=== PATIENT | male | born 1970 | race American Indian/Alaskan Native ===

== ENCOUNTER 2022-01-25 19:20 | Emergency (ER) | payer SELFPAY ==
[2022-01-26 02:55] VITALS: BP 138/80
--- NOTE | 2022-01-26 08:05 | Emergency Department Report ---
ED Lower Extremity HPI - General Chief Complaint: Extremity Problem,Nontraumatic Stated Complaint: INGROWN TOE NAIL Time Seen by Provider: 01/26/22 07:25 Source: patient Mode of arrival: Ambulatory Limitations: No Limitations - History of Present Illness Initial Comments: This is a 51-year-old male nontoxic, well nourished in appearance, no acute signs of distress presents to the ED with c/o of right 3rd toe pain 2 weeks. Patient denies any injuries or trauma. Patient denies any numbness, tingling, fever, chills, nausea, vomiting, chest pain, shortness of breath, headache, stiff neck. Patient denies any joint swelling or joint redness. Patient denies decreased range of motion or decreased gait. Patient denies any allergies. -: week(s) Injury: Toes: Right Severity: mild Severity scale (0 -10): 3 Improves With: nothing Worsens With: palpation Associated Symptoms: ambulatory. denies: snap/pop sensation, swelling, numbness, tingling, unable to bear weight, able to partially bear weight - Related Data Allergies Allergy/AdvReac Type Severity Reaction Status Date / Time No Known Allergies Allergy Verified 01/25/22 21:33 ED Review of Systems ROS: Stated complaint: INGROWN TOE NAIL Other details as noted in HPI Comment: All other systems reviewed and negative Constitutional: denies: chills, fever Eyes: denies: eye pain, eye discharge, vision change ENT: denies: ear pain, throat pain Respiratory: denies: cough, shortness of breath, wheezing Cardiovascular: denies: chest pain, palpitations Endocrine: no symptoms reported Gastrointestinal: denies: abdominal pain, nausea, diarrhea Genitourinary: denies: urgency, dysuria Musculoskeletal: denies: back pain, joint swelling, arthralgia Skin: denies: rash, lesions Neurological: denies: headache, weakness, paresthesias Psychiatric: denies: anxiety, depression Hematological/Lymphatic: denies: easy bleeding, easy bruising ED Physical Exam - General Limitations: No Limitations General appearance: alert, in no apparent distress - Head Head exam: Present: atraumatic, normocephalic - Eye Eye exam: Present: normal appearance - Neck Neck exam: Present: normal inspection, full ROM. Absent: lymphadenopathy - Respiratory Respiratory exam: Absent: respiratory distress - Cardiovascular Cardiovascular Exam: Present: regular rate - Extremities Exam Extremities exam: Present: normal inspection, full ROM, tenderness, normal capillary refill. Absent: joint swelling, calf tenderness - Expanded Lower Extremity Exam Right Hip exam: Present: normal inspection, full ROM. Absent: tenderness, swelling Upper Leg exam: Present: normal inspection, full ROM. Absent: tenderness, swelling Knee exam: Present: normal inspection, full ROM. Absent: tenderness, swelling Lower Leg exam: Present: normal inspection, full ROM. Absent: tenderness, swelling Ankle exam: Present: normal inspection, full ROM. Absent: tenderness, swelling, abrasion, laceration, ecchymosis, deformity, crepidus, dislocation, erythema, anterior draw sign Foot/Toe exam: Present: normal inspection, full ROM, tenderness. Absent: swelling, abrasion, laceration, ecchymosis, deformity, crepidus, dislocation, erythema, amputation, puncture wound, foreign body, calcaneal tenderness, tenderness at base of 5th metatarsal, nail avulsion, subungual hematoma Neuro vascular tendon exam: Present: no vascular compromise Gait: Positive: observed and normal 1 - pain here - Back Exam Back exam: Present: normal inspection, full ROM - Neurological Exam Neurological exam: Present: alert, oriented X3 - Psychiatric Psychiatric exam: Present: normal affect, normal mood - Skin Skin exam: Present: warm, dry, intact, normal color. Absent: rash ED Course Vital Signs 01/26/22 02:53 Temperature 97.6 F Pulse Rate 67 Respiratory 20 Rate Blood Pressure 138/80 [Right] O2 Sat by Pulse 99 Oximetry - Reevaluation(s) Reevaluation #1: 01/26/22 08:03 Patient is speaking in full sentences with no signs of distress noted. ED Lower Extremity MDM - Medical Decision Making This is a 51-year-old male that presents with right toe pain. Patient is stable and was examined by me. After my physical exam I instructed patient that a x- ray will be ordered but patient refused and stated he needs to leave because he worked all night. I instructed patient of my concerns and further evaluation and treatment but patient refused and sign AGAINST MEDICAL ADVICE. Patient educated of my concerns if not properly treated and diagnosed. Patient was instructed to follow-up with a orthopedic doctor as soon as possible days or if symptoms worsen and continue return to emergency room as soon as possible. At time of signing AGAINST MEDICAL ADVICE, the patient does not seem toxic or ill in appearance. No acute signs of distress noted. No further questions noted by the patient. Critical care attestation.: If time is entered above; I have spent that time in minutes in the direct care of this critically ill patient, excluding procedure time. ED Disposition Clinical Impression: Toe pain, right Disposition: 07 LEFT AGAINST MEDICAL ADVICE Is pt being admited?: No Condition: Undetermined Additional Instructions: Follow-up with a orthopedic doctor in as soon as possible or if symptoms worsen and continue return to emergency room as soon as possible. Referrals: YIMI RUDOLPH MD [Staff Physician] - [facility] Time of Disposition: 08:05
== END 2022-01-26 08:00 | disposition left against medical advice (07) ==
LOC: ED 19:20
DX: M79.674 Pain in right toe(s) (principal); Z79.899 Other long term (current) drug therapy
CPT/HCPCS: 99282

== ENCOUNTER 2022-03-01 01:17 | Emergency (ER) | payer SELFPAY ==
[2022-03-01 15:54] LABS: Basophils % (Auto) 0.7 % (0.0-1.8); Eosinophils # (Auto) 0.2 K/mm3 (0.0-0.4); Eosinophils % (Auto) 3.3 % (0.0-4.3); Hematocrit 44.7 % (35.5-45.6); Hemoglobin 14.4 gm/dl (11.8-15.2); Lymphocytes # (Auto) 1.4 K/mm3 (1.2-5.4); Lymphocytes % (Auto) 27.7 % (13.4-35.0); Mean Corpuscular HGB Conc 32 % (32-34); Mean Corpuscular Volume 90 fl (84-94); Monocytes # (Auto) 0.8 K/mm3 (0.0-0.8); Monocytes % (Auto) 15.2 % (0.0-7.3); Platelet Count 245 K/mm3 (140-440); Red Blood Count 4.95 M/mm3 (3.65-5.03)
[2022-03-01 16:17] LABS: Alanine Aminotransferase 17 units/L (7-56); Albumin 4.2 g/dL (3.9-5); BUN/Creatinine Ratio 19; Blood Urea Nitrogen 15 mg/dL (9-20); Calcium 9.2 mg/dL (8.4-10.2); Hemolysis Index 7
--- NOTE | 2022-03-01 16:53 | Emergency Department Report ---
ED Psych HPI - General Chief Complaint: Psych Stated Complaint: OVERDOSE Time Seen by Provider: 03/01/22 15:14 Source: patient Mode of arrival: Ambulatory - History of Present Illness Initial Comments: 51-year-old male patient with no previous diagnosis of psychiatric illness pre sents to the emergency department complaining of suicidal ideation since last night. Patient does have a history of substance abuse, and states that he attempted to overdose on 1 ounce of cocaine, last night, after finding out that his brother had . Patient states that his brother was his only family. Patient has no physical complaints, currently. Patient denies headache, chest pain, nausea, vomiting, palpitations, or shortness of breath. Patient denies previous similar episodes. Patient denies homicidal ideations or hallucinations. Denies any alleviating factors, but does state that he does not feel as sad as he did last night. - Related Data Allergies Allergy/AdvReac Type Severity Reaction Status Date / Time No Known Allergies Allergy Verified 01/25/22 21:33 ED Review of Systems ROS: Stated complaint: OVERDOSE Other details as noted in HPI Comment: All other systems reviewed and negative Constitutional: denies: no symptoms reported, chills, fever Eyes: denies: eye pain, eye discharge, vision change ENT: denies: ear pain, throat pain Respiratory: no symptoms reported. denies: cough, shortness of breath, wheezing Cardiovascular: denies: chest pain, palpitations Endocrine: no symptoms reported Gastrointestinal: denies: abdominal pain, nausea, diarrhea Genitourinary: denies: urgency, dysuria Musculoskeletal: denies: back pain, joint swelling, arthralgia Skin: denies: rash, lesions Neurological: denies: headache, weakness, paresthesias Psychiatric: depression, suicidal thoughts, other (Attempted suicide by cocaine overdose). denies: anxiety, auditory hallucinations, visual hallucinations, homicidal thoughts Hematological/Lymphatic: denies: easy bleeding, easy bruising ED Past Medical Hx - Social History Smoking Status: Current Every Day Smoker ED Physical Exam - General Limitations: No Limitations General appearance: alert, in no apparent distress, obese - Head Head exam: Present: atraumatic, normocephalic - Eye Eye exam: Present: normal appearance - ENT ENT exam: Present: mucous membranes moist - Neck Neck exam: Present: normal inspection - Respiratory Respiratory exam: Present: normal lung sounds bilaterally. Absent: respiratory distress - Cardiovascular Cardiovascular Exam: Present: regular rate, normal rhythm, normal heart sounds. Absent: systolic murmur, diastolic murmur, rubs, gallop - GI/Abdominal GI/Abdominal exam: Present: soft, normal bowel sounds - Rectal Rectal exam: Present: deferred - Extremities Exam Extremities exam: Present: normal inspection - Back Exam Back exam: Present: normal inspection - Neurological Exam Neurological exam: Present: alert, oriented X3 - Psychiatric Psychiatric exam: Present: depressed, flat affect, suicidal ideation - Skin Skin exam: Present: warm, dry, intact, normal color. Absent: rash ED Course Vital Signs 03/01/22 01:39 Temperature 98.1 F Pulse Rate 86 Respiratory 18 Rate Blood Pressure 171/85 O2 Sat by Pulse 99 Oximetry ED Medical Decision Making - Lab Data Result diagrams: 03/01/22 15:40 03/01/22 15:40 - Medical Decision Making This is a 51-year-old male with no psychiatric history who presents to the emergency department with acute onset of depression and suicidal ideations with suicide attempt that occurred last night. Patient states that he tried to overdose on cocaine. This was prompted by the of his brother. Initial vital signs were unremarkable. Physical exam was only concerning for flat and depressed appearing patient who is morbidly obese. Patient was placed on a 1013 for suicidal ideations and attempt. Lab work was unremarkable, and patient was medically cleared for psychiatric evaluation and disposition. Critical care attestation.: If time is entered above; I have spent that time in minutes in the direct care of this critically ill patient, excluding procedure time. ED Disposition Clinical Impression: Suicidal ideations Disposition: 30 STILL A PATIENT Is pt being admited?: No Condition: Stable Referrals: BASIA JUDD MD [Primary Care Provider] - 3-5 Days
--- NOTE | 2022-03-02 11:10 | Consultation ---
History of Present Illness - Reason for Consult Consult date: 03/02/22 Reason for consult: depression, SI - History of Present Psychiatric Illness The patient was seen today. He presented to the ER for overdose on cocaine after finding out his brother had . During the evaluation, the patient appears very sad. He says his brother was the only family he had. He says after getting the news he relapsed on cocaine. The patient says "I was doing good prior to that." He is slightly tearful. The patient does endorses SI without a plan. He says he is depressed. The patient denies hallucinations, and states he's never seen a psychiatrist or been on any psych meds prior to this. PAST PSYCHIATRIC HISTORY: Diagnoses: Denies Suicide attempts or Self-harm behavior: Denies Prior psychiatric hospitalizations: Denies Substance Abuse history: Cocaine Previous psychiatric medications tried: Denies Outpatient treatment: Denies PAST MEDICAL HISTORY: None reported Family Psychiatric History: None reported SOCIAL HISTORY Marital Status: Living Arrangements: [facility]ber living Employment Status: Employed Access to guns/weapons: Denies Education: History of Abuse: Denies Legal History: Denies REVIEW OF SYSTEMS Constitutional: Negative for weight loss ENT: Negative for stridor Respiratory: Negative for cough or hemoptysis All other systems reviewed and are negative MENTAL STATUS EXAMINATION General Appearance and Behavior: Age appropriate, wearing appropriate clothes, good eye contact Cooperation: cooperative Psychomotor Behavior: normal Mood: depressed Affect and affective range: congruent with stated mood, tearful Thought Process: goal directed Thought Content: SI, hopelessness Speech: Normal volume, Regular rate and rhythm Suicidal Ideation: Yes Homicidal Ideation: Denies Hallucination: Denies Delusions: None elicted Impulse Control: Limited Insight and Judgment: Limited Memory: Normal Attention: attentive Orientation: a/o x 3 Diagnoses: Major Depressive Disorder Cocaine Use Disorder Treatment Plan 1013 Prozac 10mg po daily Doxepine 10mg po qhs Risks, benefits and alternatives of medications discussed with the patient, questions answered and consent obtained from patient. PSYCHOTHERAPY: Supportive psychotherapy provided MEDICAL: Per primary team DELIRIUM PRECAUTIONS: Please re-orient patient frequently, keep lights on during the day, and minimize benzodiazepines and opiates as these medications could worsen patient's confusion. CASE PICKER: Defer to primary DISPOSITION: Recommend acute inpatient psychiatric hospitalization. FOLLOW-UP: Will follow Case staffed with Dr. Amos Medications and Allergies Allergies Allergy/AdvReac Type Severity Reaction Status Date / Time No Known Allergies Allergy Verified 01/25/22 21:33 Mental Status Exam - Vital signs Last Vital Signs Temp 98 F 03/01/22 19:20 Pulse 84 03/01/22 19:20 Resp 18 03/01/22 19:20 BP 136/88 03/01/22 19:20 Pulse Ox 100 03/01/22 19:20 Results Result Diagrams: 03/01/22 15:40 03/01/22 15:40 Abnormal lab results 03/01/22 03/01/22 03/01/22 Range/Units 15:40 15:40 15:40 [place] % (Auto) 15.2 H (0.0-7.3) % Glucose 105 H (75-100) mg/dL Salicylates < 0.3 L (2.8-20.0) mg/dL Acetaminophen (10.0-30.0) ug/mL 03/01/22 Range/Units 15:40 [place] % (Auto) (0.0-7.3) % Glucose (75-100) mg/dL Salicylates (2.8-20.0) mg/dL Acetaminophen 5.0 L (10.0-30.0) ug/mL All other labs normal.
--- NOTE | 2022-03-02 12:08 | Event Note ---
Date: 03/02/22 S: No events reported overnight O: Vital Signs - 8 hr 03/02/22 12:00 Temperature 98.6 F Pulse Rate 56 L Respiratory 18 Rate Blood Pressure 130/64 [Left] O2 Sat by Pulse 98 Oximetry A: Major depressive disorder, cocaine use disorder P: 1013/awaiting inpatient psych
[2022-03-02] MEDS: ESCITALOPRAM 10 MG TAB PO SCH (12:16)
[2022-03-02 15:32] LABS: Amphetamine Screen,Urine Negative; Benzodiazepines Screen,Urine Negative; Cannabinoid Screen,Urine Negative; Methadone Screen,Urine Negative; Opiate Screen,Urine Negative
[2022-03-02 15:44] LABS: Cocaine Screen,Urine Positive
[2022-03-02 16:13] LABS: Bilirubin,Urine NEG (Negative); Blood,Urine SM (Negative); Color,Urine Yellow (Yellow); Mucus,Urine FEW /HPF; Protein,Urine <15 mg/dL mg/dL (Negative); Urobilinogen,Urine < 2 mg/dL (<2.0); WBC,Urine < 1.0 /HPF (0.0-6.0)
[2022-03-02] MEDS ORDERED: DOXEPIN 10 MG CAP PO SCH (22:00)
[2022-03-03] MEDS: ESCITALOPRAM 10 MG TAB PO SCH (10:18)
--- NOTE | 2022-03-03 10:33 | Progress Note ---
Subjective - Reason for Consult Consult date: 03/03/22 Reason for consult: SI, depression - Chief Complaint Chief complaint: The patient was seen today. He says he's trying to go back to the [facility]. The patient says he's no longer suicidal. He says the [facility] told him he can come back today or tomorrow. The patient denies hallucinations of any kind. He says he's still depressed, but "only a little." REVIEW OF SYSTEMS Constitutional: Negative for weight loss ENT: Negative for stridor Respiratory: Negative for cough or hemoptysis All other systems reviewed and are negative MENTAL STATUS EXAMINATION General Appearance and Behavior: Age appropriate, wearing appropriate clothes, good eye contact Cooperation: cooperative Psychomotor Behavior: normal Mood: a little Affect and affective range: congruent with stated mood, tearful Thought Process: goal directed Thought Content: within reality Speech: Normal volume, Regular rate and rhythm Suicidal Ideation: Denies Homicidal Ideation: Denies Hallucination: Denies Delusions: None elicted Impulse Control: Limited Insight and Judgment: Limited Memory: Normal Attention: attentive Orientation: a/o x 3 Diagnoses: Major Depressive Disorder Cocaine Use Disorder Treatment Plan d/c 1013 Prozac 10mg po daily Doxepine 10mg po qhs Risks, benefits and alternatives of medications discussed with the patient, questions answered and consent obtained from patient. PSYCHOTHERAPY: Supportive psychotherapy provided MEDICAL: Per primary team DELIRIUM PRECAUTIONS: Please re-orient patient frequently, keep lights on during the day, and minimize benzodiazepines and opiates as these medications could worsen patient's confusion. PRINT DEVELOPER: Defer to primary DISPOSITION: Do not Recommend acute inpatient psychiatric hospitalization. FOLLOW-UP: Will sign off Case staffed with Dr. Trinidad Mental Status Exam - Vital signs Last Vital Signs Temp 98.6 F 03/02/22 12:00 Pulse 66 03/02/22 21:30 Resp 16 03/02/22 21:30 BP 127/77 03/02/22 21:30 Pulse Ox 97 03/02/22 21:55
[2022-03-03 12:56] VITALS: BP 130/60
== END 2022-03-03 12:15 | disposition still patient (30) ==
LOC: ED 01:17
DX: R45.851 Suicidal ideations (principal); Z20.822 Contact with and (suspected) exposure to COVID-19; F17.200 Nicotine dependence, unspecified, uncomplicated; Z79.899 Other long term (current) drug therapy
CPT/HCPCS: 36415; 80053; 80307; 81001; 85025; 99284; U0003; 80320; G0480